=== PATIENT | male | born 2000 | race Caucasian/White ===

== ENCOUNTER 2021-02-06 17:32 | Emergency (ER) | payer OTHER ==
[~2021-02-06] VITALS: Ht 177.8 cm; Wt 77.6 kg
[2021-02-06] MEDS ORDERED: LIDO:MAALOX 1:1 20 ML SINGLE DOSE. PO ONE (17:45)
--- NOTE | 2021-02-06 17:48 | PHYS DOC ---
Past History Past Surgical History: No Surgical History (CLAIR MCNALLY APRN) General Adult EDM: Chief Complaint: ABDOMINAL PAIN HPI: HPI: Patient is a 20-year-old male who presents to the emergency department today for epigastric abdominal pain that has occurred daily for the last month. Patient describes the pain as a burning pain. It is worse after eating. He rates it 7 out of 10. He took Prilosec and Tums today for treatment. Patient reports that today he started experiencing shortness of breath. Patient reports that he recently traveled here from [place] yesterday. Patient is vaccinated for COVID-19 with [employer]. Patient denies loss of taste or smell, cough, fever, nausea, vomiting, diarrhea. Last bowel movement was yesterday. Patient's vital signs are stable and he is in no acute distress. (CLAIR MCNALLY APRN) Review of Systems: Review of Systems: 14 body systems of the review of systems have been reviewed. See HPI for pertinent positive and negative responses, otherwise all other systems are negative, nonpertinent or noncontributory (CLAIR MCNALLY APRN) Allergies: Allergies: Allergies Coded Allergies Type Severity Reaction Last Updated Verified amoxicillin Allergy Unknown Rash 02/06/21 Yes clavulanic acid Allergy Unknown Rash 02/06/21 Yes (CLAIR MCNALLY APRN) Physical Exam: PE: Constitutional: Well developed, well nourished, no acute distress, non-toxic appearance. [] HENT: Normocephalic, atraumatic, bilateral external ears normal, oropharynx moist, no oral exudates, nose normal. [] Eyes: PERRL, EOMI, conjunctiva normal, no discharge. [] Neck: Normal range of motion, no stridor Cardiovascular:Heart rate regular rhythm, no murmur [] Lungs & Thorax: Bilateral breath sounds clear to auscultation [] Abdomen: Bowel sounds normal, soft, epigastric abdominal pain with palpation, no masses, no guarding, no rigidity, no pulsatile masses. [] Skin: Warm, dry, no erythema, no rash. [] Back: Normal range of motion Extremities: No tenderness, no cyanosis, no clubbing, ROM intact, no edema. [] Neurologic: Alert and oriented X 3, normal motor function, normal sensory function, no focal deficits noted. [] Psychologic: Affect normal, judgement normal, mood normal. [] (CLAIR MCNALLY APRN) Current Patient Data: Labs: Laboratory Tests Test 02/06/21 17:50 White Blood Count 7.9 x10^3/uL Red Blood Count 5.17 x10^6/uL Hemoglobin 15.8 g/dL Hematocrit 46.4 % Mean Corpuscular Volume 90 fL Mean Corpuscular Hemoglobin 31 pg Mean Corpuscular Hemoglobin Concent 34 g/dL Red Cell Distribution Width 13.0 % Platelet Count 231 x10^3/uL Neutrophils (%) (Auto) 59 % Lymphocytes (%) (Auto) 30 % Monocytes (%) (Auto) 8 % Eosinophils (%) (Auto) 3 % Basophils (%) (Auto) 1 % Neutrophils # (Auto) 4.6 x10^3uL Lymphocytes # (Auto) 2.3 x10^3/uL Monocytes # (Auto) 0.6 x10^3/uL Eosinophils # (Auto) 0.2 x10^3/uL Basophils # (Auto) 0.1 x10^3/uL Sodium Level 140 mmol/L Potassium Level 3.8 mmol/L Chloride Level 103 mmol/L Carbon Dioxide Level 30 mmol/L Anion Gap 7 Blood Urea Nitrogen 19 mg/dL Creatinine 0.9 mg/dL Estimated GFR (Cockcroft-Gault) 108.7 BUN/Creatinine Ratio 21 Glucose Level 89 mg/dL Calcium Level 8.9 mg/dL Total Bilirubin 0.3 mg/dL Aspartate Amino Transf (AST/SGOT) 25 U/L Alanine Aminotransferase (ALT/SGPT) 75 U/L Alkaline Phosphatase 100 U/L Total Protein 7.4 g/dL Albumin 4.1 g/dL Albumin/Globulin Ratio 1.2 Lipase 136 U/L Current Medications Medications (Trade) Dose Ordered Sig/Richar Route PRN Reason Start Time Stop Time Status Last Admin Dose Admin Multi-Ingredient Mouthwash/Gargle (Gi Cocktail) 20 ml 1X ONCE PO 02/06/21 17:45 02/06/21 17:48 DC 02/06/21 17:46 Iohexol (Omnipaque 300 Mg/ml) 75 ml 1X ONCE IV 02/06/21 18:00 02/06/21 18:01 DC 02/06/21 18:01 Vital Signs: Vital Signs Date Time Temp Pulse Resp B/P (MAP) Pulse Ox O2 Delivery O2 Flow Rate FiO2 02/06/21 17:40 97.8 83 18 141/108 (119) 98 (CLAIR MCNALLY APRN) EKG: EKG: [] (CLAIR MCNALLY APRN) Radiology/Procedures: Radiology/Procedures: []PROCEDURE: CT ABD PELV W/ IV CONTRST ONLY INDICATION: Reason: epigastric pain OMNI 300 75CC / Spl. Instructions: / History: COMPARISON: None. TECHNIQUE: Axial CT images were obtained through the abdomen and pelvis with intravenous contrast. One or more of the following individualized dose reduction techniques were ut ilized for this examination: 1. Automated exposure control; 2. Adjustment of the mA and/or kV according to patient size; 3. Use of iterative reconstruction technique. FINDINGS: Right-sided pneumothorax is partially seen. There is some mild flattening of the right side of the heart at the level of the pneumothorax. This is only partially seen therefore difficult to assess for size but there is at least 35 mm of pleural separation at the right chest base. Small amount of air is also seen adjacent to the esophagus at the chest base medially which could be a portion of the pneumothorax extending into the region or additional area of mediastinal air. Vascular: No abdominal aortic aneurysm. Hepatobiliary: No intrahepatic biliary duct dilation. Pancreas: No peripancreatic edema. Spleen: Spleen unremarkable. Renal/Bladder: No hydronephrosis. Gastrointestinal: The majority the appendix is not well seen secondary to adjacent loops of unopacified small bowel but does not appear grossly dilated and the visualized portion. No dilated loops of bowel to suggest obstruction. IMPRESSION: * Partial visualization of right-sided pneumothorax. There is some flattening of the right side of the cardiac silhouette overlying the right lateral ventricle which could be from mass effect from the pneumothorax. Report was called to the emergency department at 6:28 PM on date of exam. Electronically signed by: Starla Sethi MD (02/06/2021 6:32 PM) DESKTOP- [id number] DICTATED AND SIGNED BY: STARLA SETHI MD DATE: 02/06/211819 CC: CLAIR MCNALLY APRN; PCP,NO ~MTH0 0 (CLAIR MCNALLY APRN) Radiology/Procedures: INDICATION: Reason: s/p right chest tube placement / Spl. Instructions: / History: COMPARISON: Earlier same day FINDINGS: Single view of chest obtained. Interval placement of right-sided chest tube with the tip of the chest tube located in the medial aspect of the right hemithorax without formation of a pigtail. There has been interval increase in size of the right-sided pneumothorax which is now large in caliber. There is approximately 88 mm of pleural separation at the right apex. There is mass effect on the mediastinum with some mild shift to the left. IMPRESSION: * Interval placement of right-sided chest tube with the tip located in the medial aspect of the right hemithorax projecting over the lung without formation of the pigtail. There has been interval increase in size of the right-sided pneumothorax which is large in caliber with some mass effect seen on the mediastinum which appears increased from prior which could be from tension component. This was discussed with the ordering provider at 8:14 PM on date of exam. Electronically signed by: Starla Sethi MD (02/06/2021 8:20 PM) [id number] //////////////////////////// AP chest. HISTORY: Chest tube placement AP view was taken of the chest. There is a new right chest tube. Right pneumothorax has improved with a tiny residual apical pneumothorax. Lungs are free of infiltrates. Heart is normal in size. IMPRESSION: 1. Right chest tube in place. 2. Improved right pneumothorax with tiny residual. Electronically signed by: Fortino Fiore MD (02/06/2021 9:19 PM) [facility] (LULY SCHERER DO) Heart Score: C/O Chest Pain: N/A Risk Factors: Risk Factors: DM, Current or recent (<one month) smoker, HTN, HLP, family history of CAD, obesity. Risk Scores: Score 0 - 3: 2.5% MACE over next 6 weeks - Discharge Home Score 4 - 6: 20.3% MACE over next 6 weeks - Admit for Clinical Observation Score 7 - 10: 72.7% MACE over next 6 weeks - Early Invasive Strategies (CLAIR MCNALLY APRN) C/O Chest Pain: No (LULY SCHERER DO) Course & Med Decision Making: Course & Med Decision Making Pertinent Labs and Imaging studies reviewed. (See chart for details) Patient presents to the emergency department for epigastric burning pain that is worse after eating [id number]. Patient is also reporting shortness of breath that started today. Patient recently traveled here via airplane from [place]. Work-up in the ER consisted of blood work, Covid testing and CT abdomen pelvis. Patient treated with a GI cocktail. Perc score: PE can be ruled out. Lab work unremarkable. CT imaging shows right pneumothorax as read by radiologist, cxr ordered. I discussed findings with supervising physician. Patient placed on supplemental oxygen. Patients vital signs continued to be stable at this time. Mother reports that patient has never had a history of a spontaneous pneumothorax. Patient and his mother updated on findings and treatment plan. Report given to Dr. Scherer, he will assume patient care at this time due to shift change. 1914 (CLAIR MCNALLY APRN) Course & Med Decision Making I assisted with initial evaluation and treatment of patient as I was attending physician. I immediately saw patient and redirected care to trauma room in ER setting I reviewed CT imaging of abdomen pelvis and subsequently confirmed right-sided spontaneous pneumothorax of the chest with bedside ultrasound and subsequent radiograph Verbal and written consent obtained from both patient and mother to perform pigtail chest tube insertion. Complication occurred as this was placed in the fissure causing worsening tension pneumothorax. This was disclosed with patient and mother Pulmonology attending consulted and recommendations were had to place 24 [place] catheter chest tube instead. Again, verbal and written consent obtained from both patient and mother to have this performed which was tolerated well with sufficient postprocedural chest x-ray Ultimately, Dr. Regalado, hospitalist at [facility] agreed to need for hospital transfer for admission with Dr. Daily, pulmonology attending at [facility] aware of patient and will be consulted immediately on arrival Patient's pain adequately controlled, remained hemodynamically stable in ER s etting prior to hospital transfer via EMS for inpatient admission Critical Care Time This patient required critical care. Due to the fact that the patient required a significant amount of one on one physician - patient contact time, ordering and review of studies, arranging urgent treatment with development of a management plan, evaluation of patients response to treatment with frequent reassessments, and discussions with other providers this patient required 40 minutes of critical care time. Critical care time was indicated due to the inherent instability and/or potential for instability in this patient. The critical care time that is allocated to this patient is above and beyond any time spent on any other billable procedures performed on this patient. (LULY SCHERER DO) Dragon Disclaimer: Dragon Disclaimer: This electronic medical record was generated, in whole or in part, using a voice recognition dictation system. (CLAIR MCNALLY APRN) Chest Tube Chest Tube : Chest Tube Location: forth interspace Chest Tube Procedure: betadine prep, sterile drapes applied, sterile dressing applied Anesthesia: 1% Lidocaine Volume Anesthetic (ccs): 5 Santos of Air [place]: Yes Number of Attempts: 2 Tube Drainage: see nurses notes Tube Sutured to Skin: Yes Post Procedure CXR?: Yes Progress INDICATION: Right-sided spontaneous pneumothorax PROCEDURE [employer]ARM[employer] SALES: Luly Scherer DO with Magda Bailey, OMS 4 cystoscopy CONSENT: Consent was obtained from patient and mother prior to the procedure. Indications, risks, and benefits were explained at length. PROCEDURE SUMMARY: A time out was performed and after the chest x-ray was reviewed, the appropriate side was confirmed and marked. My hands were washed immediately prior to the procedure. I wore a surgical cap, mask, sterile gown and sterile gloves throughout the procedure. The patient was prepped and draped in a sterile manner using iodine prep scrub after the patient was positioned in the usual fashion. 1 mg/kg ketamine administered for procedural sedation. A 2 cm incision was then made parallel to the rib in the midaxillary line at the level of the 4th rib. The subcutaneous tissue superficial and superior to the rib was dissected bluntly to the level of the pleura. The pleura was then entered bluntly. A 28 [place] chest tube was then inserted using trochar as a guide. The chest tube was directed superiorly and inserted easily. The chest tube was sutured to the skin at the insertion site, and connected securely with tape to a pleurovac. A sterile occlusive dressing was placed over the insertion site. No immediate complications were noted. Estimated blood loss is 0. A post- procedure chest x-ray was performed showing worsened tension type pneumothorax g iven placement that was likely in right lung fissure. As such, repeat consent to perform additional chest tube placement using a trocar 24 [place] catheter obtained from mother and son per pulmonology request. Decision was made to defer additional ketamine administration due to superficial skin reaction/Uticaria that improved with 50 mg IV Benadryl. As such, an additional time out was performed and after the chest x-ray was reviewed, the appropriate side was confirmed and marked. My hands were washed immediately prior to the procedure. I wore a surgical cap, mask, sterile gown and sterile gloves throughout the procedure. The patient was prepped and draped in a sterile manner using iodine prep scrub after the patient was positioned in the usual fashion. 6 cc 1% lidocaine administered around site of pre-existing chest tube. Previously placed sutures were cut and catheter removed. Iodine prep again was utilized to cleanse area and repeat sterile dressings applied to site. Using the pre-existing entry site, a 24 [place] chest tube was then inserted using trochar as a guide. The chest tube was directed superiorly and inserted easily. The chest tube was sutured to the skin at the insertion site, and connected securely with tape to a pleurovac. A sterile occlusive dressing was placed over the insertion site. No immediate complications were noted. Estimated blood loss is 0. A post-procedure chest x-ray was performed showing improvement in pneumothorax and adequate position of chest tube. Repeat procedure in chest films reviewed with pulmonology attending who is happy with procedure. (LULY SCHERER DO) Ultrasound Progress Due to this patient's reported HPI, a focused bedside sonography for respiratory function was indicated Bedside ultrasonography was utilized to complete this procedure Respiratory evaluation involved both the superior portions of the chest to visualize lung and subsequent pleura with obvious right-sided pneumothorax present. (LULY SCHERER DO) Departure Departure: Impression: Primary Impression: Spontaneous pneumothorax Disposition: [address] [facility] Admitting Physician: Other (dr regalado) (LULY SCHERER DO) Condition: STABLE Referrals: PCP,NO (PCP) CLAIR MCNALLY APRN Feb 06, 2021 17:48 LULY SCHERER DO Feb 06, 2021 21:38
[2021-02-06] MEDS ORDERED: IOHEXOL 300 MG/ML 75 ML VIAL. IV ONE (18:00)
[2021-02-06 18:15] LABS: BASO # 0.1 x10^3/uL (0.0-0.2); BASO % 1 % (0-3); EOS # 0.2 x10^3/uL (0.0-0.7); EOS % 3 % (0-3); HEMATOCRIT 46.4 % (39.0-53.0); HEMOGLOBIN 15.8 g/dL (13.0-17.5); LYMPH # 2.3 x10^3/uL (1.0-4.8); LYMPH % 30 % (24-48); MEAN CORPUSCULAR HEMOGLOBIN 31 pg (25-35); MEAN CORPUSCULAR HGB CONC 34 g/dL (31-37); MEAN CORPUSCULAR VOLUME 90 fL (79-100); MONO # 0.6 x10^3/uL (0.0-1.1); MONO % 8 % (0-9); NEUT # 4.6 x10^3uL (1.8-7.7); NEUT % 59 % (31-73); PLATELET COUNT 231 x10^3/uL (140-400); RED BLOOD COUNT 5.17 x10^6/uL (4.30-5.70); WHITE BLOOD COUNT 7.9 x10^3/uL (4.0-11.0)
[2021-02-06 18:19] LABS: CALCIUM 8.9 mg/dL (8.5-10.1); CREATININE 0.9 mg/dL (0.7-1.3); GFR 108.7; POTASSIUM 3.8 mmol/L (3.5-5.1)
[2021-02-06 18:25] LABS: ALBUMIN 4.1 g/dL (3.4-5.0); ALBUMIN/GLOBULIN RATIO 1.2 (1.0-1.7); TOTAL BILIRUBIN 0.3 mg/dL (0.2-1.0); TOTAL PROTEIN 7.4 g/dL (6.4-8.2)
--- NOTE | 2021-02-06 18:35 | RAD ---
INDICATION: Reason: epigastric pain OMNI 300 75CC / Spl. Instructions: / History: COMPARISON: None. TECHNIQUE: Axial CT images were obtained through the abdomen and pelvis with intravenous contrast. One or more of the following individualized dose reduction techniques were utilized for this examinat ion: 1. Automated exposure control; 2. Adjustment of the mA and/or kV according to patient size; 3 . Use of iterative reconstruction technique. FINDINGS: Right-sided pneumothorax is partially seen. There is some mild flattening of the right side of the he art at the level of the pneumothorax. This is only partially seen therefore difficult to assess for s ize but there is at least 35 mm of pleural separation at the right chest base. Small amount of air is also seen adjacent to the esophagus at the chest base medially which could be a portion of the pneum othorax extending into the region or additional area of mediastinal air. Vascular: No abdominal aortic aneurysm. Hepatobiliary: No intrahepatic biliary duct dilation. Pancreas: No peripancreatic edema. Spleen: Spleen unremarkable. Renal/Bladder: No hydronephrosis. Gastrointestinal: The majority the appendix is not well seen secondary to adjacent loops of unopacifi ed small bowel but does not appear grossly dilated and the visualized portion. No dilated loops of abimbola wel to suggest obstruction. IMPRESSION: * Partial visualization of right-sided pneumothorax. There is some flattening of the right side of the cardiac silhouette overlying the right lateral ventricle which could be from mass effect from the pneumothorax. Report was called to the emergency department at 6:28 PM on date of exam. Electronically signed by: Moises Krueger MD (02/06/2021 6:32 PM) [id number]
[2021-02-06] MEDS ORDERED: KETAMINE HCL IN NACL, ISO-OSM 50 MG/5 ML SYRINGE IV ONE (19:15)
[2021-02-06 19:42] VITALS: BP 145/104
--- NOTE | 2021-02-06 20:17 | RAD ---
INDICATION: Reason: Short of air/ Spl. Instructions: / History: COMPARISON: CT abdomen from earlier same day FINDINGS: Single view of chest obtained. Moderate right-sided pneumothorax is seen with approximately 4 cm of pleural separation at the right upper lung. Cardiac silhouette is not enlarged. IMPRESSION: * Moderate right-sided pneumothorax is identified. Report called to the ER at 8:13 PM on date of . Electronically signed by: Moises Krueger MD (02/06/2021 8:15 PM) [id number]
--- NOTE | 2021-02-06 20:22 | RAD ---
INDICATION: Reason: s/p right chest tube placement / Spl. Instructions: / History: COMPARISON: Earlier same day FINDINGS: Single view of chest obtained. Interval placement of right-sided chest tube with the tip of the chest tube located in the medial asp ect of the right hemithorax without formation of a pigtail. There has been interval increase in size of the right-sided pneumothorax which is now large in calibe r. There is approximately 88 mm of pleural separation at the right apex. There is mass effect on the mediastinum with some mild shift to the left. IMPRESSION: * Interval placement of right-sided chest tube with the tip located in the medial aspect of the righ t hemithorax projecting over the lung without formation of the pigtail. There has been interval incre ase in size of the right-sided pneumothorax which is large in caliber with some mass effect seen on t he mediastinum which appears increased from prior which could be from tension component. This was dis cussed with the ordering provider at 8:14 PM on date of exam. Electronically signed by: Moises Krueger MD (02/06/2021 8:20 PM) [id number]
[2021-02-06 20:30] VITALS: BP 161/100
[2021-02-06] MEDS ORDERED: diphenhydrAMINE 50 MG/ML VIAL IVP ONE (20:30)
--- NOTE | 2021-02-06 21:21 | RAD ---
AP chest. HISTORY: Chest tube placement AP view was taken of the chest. There is a new right chest tube. Right pneumothorax has improved with a tiny residual apical pneumothorax. Lungs are free of infiltrates. Heart is normal in size. IMPRESSION: 1. Right chest tube in place. 2. Improved right pneumothorax with tiny residual. Electronically signed by: Fortino Fiore MD (02/06/2021 9:19 PM) [facility]
[2021-02-06 21:41] VITALS: BP 136/90
== END 2021-02-06 22:13 | disposition short-term general hospital (02) ==
LOC: ER 17:32
DX: J93.83 Other pneumothorax (principal); Z20.822 Contact with and (suspected) exposure to COVID-19; Z88.1 Allergy status to other antibiotic agents; Z88.8 Allergy status to other drugs, medicaments and biological substances
CPT/HCPCS: 32551; 36415; 71045; 74177; 80053; 83690; 85025; 87426; 96374; 96375; 96376; 99291; C9803; J1200; J3010; Q9967; U0003